=== PATIENT | female | born 1965 | race Caucasian/White ===

== ENCOUNTER 2016-12-01 12:45 | Emergency (ER) | payer OTHER ==
[2016-12-01 16:04] VITALS: BP 124/72
== END 2016-12-01 16:04 | disposition home or self-care (01) ==
LOC: ED 12:45
DX: R31.9 Hematuria, unspecified (principal); Z71.6 Tobacco abuse counseling
CPT/HCPCS: 99406

== ENCOUNTER 2016-12-29 07:25 | Emergency (ER) | payer OTHER ==
[~2016-12-29] VITALS: Ht 165.1 cm; Wt 59.4 kg
[2016-12-29 08:35] LABS: UA SPECIFIC GRAVITY >=1.030 (1.005-1.035); microscopic required? YES; urine erythrocyte 3+ (NEGATIVE)
[2016-12-29 10:09] VITALS: BP 108/65
== END 2016-12-29 10:09 | disposition home or self-care (01) ==
LOC: ED 07:25
PROVIDERS: Emergency Medicine
DX: N39.0 Urinary tract infection, site not specified (principal); J45.909 Unspecified asthma, uncomplicated; Z87.442 Personal history of urinary calculi; Z79.899 Other long term (current) drug therapy

== ENCOUNTER 2017-07-23 16:42 | Emergency (ER) | payer OTHER ==
[2017-07-23 17:14] VITALS: BP 134/85
== END 2017-07-23 19:01 | disposition home or self-care (01) ==
LOC: ED 16:42
DX: J02.9 Acute pharyngitis, unspecified (principal); J45.909 Unspecified asthma, uncomplicated

== ENCOUNTER 2018-11-03 13:12 | Emergency (ER) | payer OTHER ==
[~2018-11-03] VITALS: Ht 165.1 cm; Wt 77.6 kg
[2018-11-03 13:34] VITALS: Ht 165.1 cm; Wt 77.6 kg
[2018-11-03 17:35] VITALS: BP 107/79
== END 2018-11-03 17:35 | disposition home or self-care (01) ==
LOC: ED 13:12
DX: S50.02XA Contusion of left elbow, initial encounter (principal); S80.01XA Contusion of right knee, initial encounter; N39.0 Urinary tract infection, site not specified; R31.9 Hematuria, unspecified; J45.909 Unspecified asthma, uncomplicated; W01.0XXA Fall on same level from slipping, tripping and stumbling without subsequent striking against object, initial encounter; Y93.89 Activity, other specified; Y92.89 Other specified places as the place of occurrence of the external cause; Y99.8 Other external cause status
CPT/HCPCS: J1100; J1885